=== PATIENT | female | born 1995 | race African-American/Black ===

== ENCOUNTER 2020-11-30 01:56 | Inpatient (IN) ==
[2020-11-30] MEDS ORDERED: MEPERIDINE 50 MG/1 ML VIAL IV PRN (02:08)
[2020-11-30] MEDS ORDERED: ONDANSETRON 4 MG/2 ML VIAL IV PRN (02:08)
[2020-11-30] MEDS ORDERED: LACTATED RINGERS 500 ML IV PRN (02:08)
[2020-11-30] MEDS ORDERED: ACETAMINOPHEN 325 MG TABLET PO PRN ×2 (02:08→19:07)
[2020-11-30] MEDS ORDERED: BUTORPHANOL 2 MG/ML VIAL IV PRN (02:08)
[2020-11-30 02:30] LABS: Basophils % 0.3 % (0.0-0.8); Eosinophils # 0.1 10*3/uL (0.0-0.87); Eosinophils % 0.7 % (0.00-10.9); Hematocrit 38.2 VOL% (35.7-47.0); Hemoglobin 12.4 GM/DL (12.0-16.0); Immature Granulocytes % 0.8 %; Immature Granulocytes Absolute 0.09 #; Lymphocytes % 18.5 % (21.3-54.2); Mean Corpuscular HGB Conc 32.5 GM/DL (32-36); Mean Corpuscular Volume 90.7 FL (87-102); Mean Platelet Volume 10.8 FL (9.6-12.0); Monocytes % 11.4 % (1.7-12.7); Neutrophils % 68.3 % (38.7-73.9); Platelet Count 314 T/CUMM (130-400); Red Blood Count 4.21 MC/CUMM (3.8-5.5); Red Cell Distribution Width 15.6 % (9.3-17.3)
[2020-11-30] MEDS ORDERED: OXYTOCIN/LR 20 UNIT/1,000 ML BAG IV SCH (02:30)
[2020-11-30 02:47] LABS: Alanine Aminotransferase 17 U/L (13-56); Albumin 2.6 G/DL (3.4-5.0); Alkaline Phosphatase 163 U/L (45-117); Aspartate Amino Transferase 19 U/L (0-37); Bilirubin,Total < 0.39 MG/DL (0.2-1.0); Blood Urea Nitrogen 8 MG/DL (7-18); Calcium 8.9 MG/DL (8.5-10.1); Carbon Dioxide 19 MMOL/L (21-32); Estimated Glom Filtration Rate 156 ML/MIN; Glucose 97 MG/DL (74-106); Potassium 3.9 MMOL/L (3.5-5.1); Sodium 136 MMOL/L (136-145); Total Protein 6.9 G/DL (6.4-8.2); Uric Acid 5.1 MG/DL (2.6-6.0)
[2020-11-30] MEDS: LACTATED RINGERS 1,000 ML IV SCH ×2 (03:01→12:30)
[2020-11-30] MEDS ORDERED: ePHEDrine 50 MG/ML VIAL IV PRN (07:51)
[2020-11-30] MEDS ORDERED: FAMOTIDINE 20 MG/2 ML VIAL IV ONE (07:51)
[2020-11-30] MEDS ORDERED: CITRIC ACID/SODIUM CITRATE 30 ML UDCUP PO ONE (07:51)
[2020-11-30] MEDS ORDERED: LACTATED RINGERS 1,000 ML IV ONE (07:51)
[2020-11-30] MEDS ORDERED: NALOXONE 0.4 MG/ML VIAL IV PRN (07:52)
[2020-11-30] MEDS ORDERED: diphenhydrAMINE 50 MG/1 ML VIAL IV PRN ×2 (07:52)
[2020-11-30] MEDS ORDERED: hydrOXYzine HCL 25 MG/1 ML VIAL IM PRN (07:52)
[2020-11-30] MEDS ORDERED: PROMETHAZINE 25 MG/1 ML VIAL IM ONE (07:52)
[2020-11-30] MEDS ORDERED: LACTATED RINGERS 1,000 ML IV SCH (08:00)
[2020-11-30] MEDS: fentaNYL 2 MCG/ROPIV 0.2% EPID 100 ML EPIDURAL SCH ×2 (08:34→15:46)
[2020-11-30 09:50] LABS: Bilirubin,Urine Negative (Negative); Blood, Urine Small mg/dL (Negative); Glucose,Urine (UA) Negative (Negative); Ketones,Urine Negative (Negative); Mucus,Urine Few /LPF (Occasional); Nitrite,Urine Negative (Negative); Protein,Urine 30 MG/DL; RBC,Urine 5 /HPF (0-4); Squamous Epithelial Cell,Urine Occasional /HPF (0-10); Urine Appearance CLEAR (Clear); Urine Color Yellow (Yellow); Urine Specific Gravity 1.014 (1.001-1.035); Urine Urobilinogen < 2.0 EU/DL (0.2-1.0); WBC,Urine 20 /HPF (0-6)
[2020-11-30] MEDS ORDERED: miSOPROStoL 200 MCG TABLET ONE (16:20)
[2020-11-30] MEDS ORDERED: LIDOCAINE 1% 50 ML VIAL ONE (16:20)
[2020-11-30] MEDS ORDERED: CARBOPROST TROMETHAMINE 250 MCG/ML AMP IM ONE (16:20)
[2020-11-30] MEDS ORDERED: METHYLERGONOVINE 0.2 MG/1 ML AMP ONE (16:21)
[2020-11-30 17:19] LABS: Cord Venous Blood HCO3 18.5 MMOL/L; Cord Venous Blood PCO2 49.6 MMHG; Cord Venous Blood PO2 23.5
[2020-11-30] MEDS ORDERED: BISACODYL 10 MG SUPP RECTAL PRN (19:07)
[2020-11-30] MEDS ORDERED: HYDROCORTISONE 2.5% RECTAL CREAM 30 GM TUBE TOP PRN (19:07)
[2020-11-30] MEDS ORDERED: MEASLES/MUMPS/RUBELLA VACCINE 0.5 ML VIAL SUBCUT ONE (19:07)
[2020-11-30] MEDS ORDERED: BENZOCAINE 20%/MENTHOL 0.5% SPRAY 56 GM CAN TOP PRN (19:07)
[2020-11-30] MEDS ORDERED: LANOLIN 50% CREAM 0.3 OZ TUBE TOP PRN (19:07)
[2020-11-30] MEDS ORDERED: WITCH HAZEL PADS 100/JAR TOP PRN (19:07)
[2020-11-30] MEDS ORDERED: RHO(D) IMMUNE GLOBULIN 300 MCG SYRINGE IM ONE (19:07)
[2020-11-30] MEDS ORDERED: OXYTOCIN/LR 20 UNIT/1,000 ML BAG IV ONE (19:07)
[2020-11-30] MEDS ORDERED: oxyCODONE/ACETAMINOPHEN 5-325 MG TABLET PO PRN ×2 (19:07)
[2020-11-30] MEDS ORDERED: DIPH/TET/ACEL PERT BOOSTER VACCINE 0.5 ML VIAL IM ONE (19:07)
[2020-11-30] MEDS: IBUPROFEN 800 MG TABLET PO PRN (19:13)
[2020-11-30] MEDS: DOCUSATE SODIUM 100 MG CAPSULE PO SCH (21:56)
[2020-12-01] MEDS: IBUPROFEN 800 MG TABLET PO PRN ×4 (03:04→21:24)
[2020-12-01 06:21] LABS: Basophils % 0.3 % (0.0-0.8); Eosinophils # 0.1 10*3/uL (0.0-0.87); Eosinophils % 0.9 % (0.00-10.9); Hematocrit 34.5 VOL% (35.7-47.0); Immature Granulocytes % 0.8 %; Immature Granulocytes Absolute 0.11 #; Lymphocytes # 1.5 10*3/uL (1.4-4.0); Lymphocytes % 10.6 % (21.3-54.2); Mean Corpuscular HGB Conc 31.9 GM/DL (32-36); Mean Corpuscular Volume 91.5 FL (87-102); Mean Platelet Volume 10.8 FL (9.6-12.0); Monocytes % 7.2 % (1.7-12.7); Neutrophils % 80.2 % (38.7-73.9); Platelet Count 233 T/CUMM (130-400); Red Blood Count 3.77 MC/CUMM (3.8-5.5); Red Cell Distribution Width 15.4 % (9.3-17.3); White Blood Count 14.4 T/CUMM (4-12)
[2020-12-01] MEDS: DOCUSATE SODIUM 100 MG CAPSULE PO SCH ×2 (08:39→21:24)
[2020-12-02] MEDS: IBUPROFEN 800 MG TABLET PO PRN ×2 (06:05→09:36)
[2020-12-02 07:33] VITALS: BP 140/89
[2020-12-02] MEDS: DOCUSATE SODIUM 100 MG CAPSULE PO SCH (08:15)
== END 2020-12-02 11:45 | disposition home or self-care (01) | DRG 560 ==
LOC: N.LD 01:56 → N.OB 21:30
PROVIDERS: ADMIT Obstetrics & Gynecology; ATTEND Obstetrics & Gynecology

== ENCOUNTER 2022-05-21 08:24 | Inpatient (IN) ==
[2022-05-21 08:51] LABS: Bacteria,Urine Occasional /HPF (Few); Mucus,Urine Many /LPF (Occasional); RBC,Urine 8 /HPF (0-4); Squamous Epithelial Cell,Urine Moderate /HPF (0-10)
[2022-05-21 08:52] LABS: Urine Appearance Clear (Clear); Urine Color Yellow (Yellow)
[2022-05-21 08:53] LABS: Bilirubin,Urine Small mg/dL (Negative); Blood, Urine Trace mg/dL (Negative); Glucose,Urine (UA) Negative (Negative); Ketones,Urine 15 mg/dL (Negative); Nitrite,Urine Negative (Negative); Protein,Urine 30 mg/dL (Negative); Urine Urobilinogen 0.2 eU/dL (<2.0)
[2022-05-21] MEDS ORDERED: LACTATED RINGERS 1,000 ML IV ONE ×2 (09:20→11:26)
[2022-05-21] MEDS ORDERED: MEPERIDINE 50 MG/1 ML VIAL IV ONE (09:21)
[2022-05-21] MEDS ORDERED: ONDANSETRON 4 MG/2 ML VIAL IV ONE (09:21)
[2022-05-21] MEDS ORDERED: miSOPROStoL 200 MCG TABLET RECTAL PRN (11:12)
[2022-05-21] MEDS ORDERED: OXYTOCIN/LR 20 UNIT/1,000 ML BAG IV ONE ×3 (11:12→18:27)
[2022-05-21] MEDS ORDERED: METHYLERGONOVINE 0.2 MG/1 ML AMP IM PRN (11:12)
[2022-05-21] MEDS ORDERED: CARBOPROST TROMETHAMINE 250 MCG/ML AMP IM PRN (11:12)
[2022-05-21] MEDS ORDERED: BUTORPHANOL 2 MG/ML VIAL IV PRN (11:12)
[2022-05-21] MEDS ORDERED: TRANEXAMIC ACID 1,000 MG in SODIUM CHLORIDE 0.9% 100 ML IV PRN (11:12)
[2022-05-21] MEDS ORDERED: MEPERIDINE 50 MG/1 ML VIAL IV PRN (11:12)
[2022-05-21] MEDS ORDERED: AMPICILLIN INJ 2,000 MG in SODIUM CHLORIDE 0.9% 100 ML IV ONE (11:15)
[2022-05-21] MEDS ORDERED: NALOXONE 0.4 MG/ML VIAL IV PRN (11:26)
[2022-05-21] MEDS ORDERED: FAMOTIDINE 20 MG/2 ML VIAL IV ONE (11:26)
[2022-05-21] MEDS ORDERED: CITRIC ACID/SODIUM CITRATE 30 ML UDCUP PO ONE (11:26)
[2022-05-21] MEDS ORDERED: diphenhydrAMINE 50 MG/1 ML VIAL IV PRN ×2 (11:26)
[2022-05-21] MEDS ORDERED: OXYTOCIN/LR 20 UNIT/1,000 ML BAG IV SCH (11:30)
[2022-05-21] MEDS ORDERED: fentaNYL 2 MCG/ROPIV 0.2% EPID 100 ML EPIDURAL SCH (11:30)
[2022-05-21 11:34] LABS: Basophils % 0.2 % (0.0-0.8); Eosinophils % 0.2 % (0.00-10.9); Hematocrit 38.4 VOL% (35.7-47.0); Hemoglobin 12.1 GM/DL (12.0-16.0); Lymphocytes # 1.3 10*3/uL (1.4-4.0); Lymphocytes % 13.2 % (21.3-54.2); Mean Corpuscular HGB Conc 31.5 GM/DL (32-36); Mean Corpuscular Volume 86.1 FL (87-102); Mean Platelet Volume 10.8 FL (9.6-12.0); Monocytes # 0.8 10*3/uL (0.11-0.8); Monocytes % 8.6 % (1.7-12.7); Neutrophils % 76.8 % (38.7-73.9); Platelet Count 348 T/CUMM (130-400); Red Blood Count 4.46 MC/CUMM (3.8-5.5); Red Cell Distribution Width 16.8 % (9.3-17.3); White Blood Count 9.5 T/CUMM (4-12)
[2022-05-21] MEDS: LACTATED RINGERS 1,000 ML IV SCH ×3 (11:35→15:56)
[2022-05-21] MEDS: ePHEDrine 50 MG/ML VIAL IV PRN ×3 (15:56→16:08)
[2022-05-21] MEDS ORDERED: AMPICILLIN INJ 1,000 MG in SODIUM CHLORIDE 0.9% 100 ML IV SCH (16:00)
[2022-05-21 16:49] LABS: Glucose,Urine (UA) Negative (Negative); Ketones,Urine >=160 mg/dL (Negative); Mucus,Urine Occasional /LPF (Occasional); Protein,Urine Negative (Negative); RBC,Urine 7 /HPF (0-4); Squamous Epithelial Cell,Urine Occasional /HPF (0-10); Urine Appearance Clear (Clear); Urine Color Yellow (Yellow); Urine Specific Gravity 1.025 (1.001-1.035)
[2022-05-21 16:50] LABS: Bilirubin,Urine Negative (Negative); Blood, Urine Trace mg/dL (Negative); Nitrite,Urine Negative (Negative); Urine Urobilinogen 0.2 eU/dL (<2.0)
[2022-05-21] MEDS ORDERED: miSOPROStoL 200 MCG TABLET ONE (16:56)
[2022-05-21] MEDS ORDERED: TRANEXAMIC ACID 1,000 MG/10 ML VIAL ONE (16:56)
[2022-05-21] MEDS ORDERED: METHYLERGONOVINE 0.2 MG/1 ML AMP ONE (16:56)
[2022-05-21] MEDS ORDERED: CARBOPROST TROMETHAMINE 250 MCG/ML AMP IM ONE (16:56)
[2022-05-21] MEDS ORDERED: SODIUM CHLORIDE 0.9% 0 ML IV ONE (16:56)
[2022-05-21 18:09] LABS: Cord Venous Blood HCO3 19.6 MMOL/L; Cord Venous Blood PCO2 46.8 MMHG; Cord Venous Blood PO2 28.2
[2022-05-21] MEDS ORDERED: BENZOCAINE 20%/MENTHOL 0.5% SPRAY 56 GM CAN TOP PRN (18:27)
[2022-05-21] MEDS ORDERED: oxyCODONE/ACETAMINOPHEN 5-325 MG TABLET PO PRN ×2 (18:27)
[2022-05-21] MEDS ORDERED: RHO(D) IMMUNE GLOBULIN 300 MCG SYRINGE IM ONE (18:27)
[2022-05-21] MEDS ORDERED: LANOLIN 50% CREAM 0.3 OZ TUBE TOP PRN (18:27)
[2022-05-21] MEDS ORDERED: BISACODYL 10 MG SUPP RECTAL PRN (18:27)
[2022-05-21] MEDS ORDERED: ONDANSETRON 4 MG/2 ML VIAL IV PRN (18:27)
[2022-05-21] MEDS ORDERED: WITCH HAZEL PADS 100/JAR TOP PRN (18:27)
[2022-05-21] MEDS ORDERED: MEASLES/MUMPS/RUBELLA VACCINE 0.5 ML VIAL SUBCUT ONE (18:27)
[2022-05-21] MEDS ORDERED: DIPH/TET/ACEL PERT BOOSTER VACCINE 0.5 ML VIAL IM ONE (18:27)
[2022-05-21] MEDS ORDERED: ACETAMINOPHEN 325 MG TABLET PO PRN (18:27)
[2022-05-21] MEDS ORDERED: HYDROCORTISONE 2.5% RECTAL CREAM 30 GM TUBE TOP PRN (18:27)
[2022-05-21] MEDS: IBUPROFEN 800 MG TABLET PO PRN (22:00)
[2022-05-21] MEDS: DOCUSATE SODIUM 100 MG CAPSULE PO SCH (22:59)
[2022-05-22 06:29] LABS: Basophils % 0.4 % (0.0-0.8); Eosinophils # 0.1 10*3/uL (0.0-0.87); Hematocrit 33.6 VOL% (35.7-47.0); Hemoglobin 10.7 GM/DL (12.0-16.0); Immature Granulocytes % 0.8 %; Immature Granulocytes Absolute 0.08 #; Lymphocytes # 1.6 10*3/uL (1.4-4.0); Lymphocytes % 15.6 % (21.3-54.2); Mean Corpuscular HGB Conc 31.8 GM/DL (32-36); Mean Corpuscular Volume 85.5 FL (87-102); Mean Platelet Volume 11.1 FL (9.6-12.0); Monocytes % 10.1 % (1.7-12.7); Neutrophils % 72.1 % (38.7-73.9); Platelet Count 282 T/CUMM (130-400); Red Blood Count 3.93 MC/CUMM (3.8-5.5); Red Cell Distribution Width 16.7 % (9.3-17.3); White Blood Count 10.3 T/CUMM (4-12)
[2022-05-22] MEDS: DOCUSATE SODIUM 100 MG CAPSULE PO SCH (09:16)
[2022-05-22] MEDS ORDERED: INFLUENZA VIRUS VACCINE 0.5 ML SYRINGE IM ONE (12:00)
[2022-05-22] MEDS: IBUPROFEN 800 MG TABLET PO PRN (23:30)
[2022-05-23] MEDS: DOCUSATE SODIUM 100 MG CAPSULE PO SCH ×2 (01:22→09:36)
[2022-05-23 08:36] VITALS: BP 120/74
== END 2022-05-23 15:02 | disposition home or self-care (01) | DRG 560 ==
LOC: N.LD 08:24 → N.OB 05-22 09:49
PROVIDERS: ADMIT Obstetrics & Gynecology; ATTEND Obstetrics & Gynecology